=== PATIENT | female | born 1935 | race Two or more races ===

== ENCOUNTER 2021-07-05 09:45 | Inpatient (IN) | payer OTHER ==
[~2021-07-05] VITALS: Ht 157.5 cm; Wt 61.2 kg
[2021-07-05] MEDS ORDERED: HYDREA500 M1 PO (12:01)
[2021-07-05] MEDS ORDERED: LIPITOR40 MG PO (12:01)
[2021-07-05] MEDS ORDERED: PLAVIX75 MG PO (12:01)
[2021-07-05] MEDS ORDERED: CARAFATE1 GM PO (12:01)
[2021-07-05] MEDS ORDERED: TENORMIN100 M1 PO (12:02)
[2021-07-05] MEDS ORDERED: NORVASC5 MG PO (12:02)
[2021-07-05] MEDS ORDERED: IRON325 MG PO (12:02)
[2021-07-05] MEDS ORDERED: FOLIC ACID0.8 M1 PO (12:02)
[2021-07-09] MEDS ORDERED: FAMOTIDINE20 MG (08:29)
[2021-07-09] MEDS ORDERED: INTESTINEX680 M1 (08:29)
[2021-07-13] MEDS ORDERED: PERCOCET 5-3251 EACH PO (09:32)
== END 2021-07-13 09:00 | disposition home or self-care (01) | DRG 330 ==
LOC: SURG 07-09 06:00 → O/R 07-09 06:00 → SURH 07-09 09:45 → SURG 07-09 14:24
PROVIDERS: ADMIT Colon & Rectal Surgery; ATTEND Colon & Rectal Surgery
PROC: 0DBP4ZZ Excision of Rectum, Percutaneous Endoscopic Approach (ICD-10-PCS; 2021-07-09)
PROC: 0DTN4ZZ Resection of Sigmoid Colon, Percutaneous Endoscopic Approach (ICD-10-PCS; principal; 2021-07-09 11:00)
PROC: 30233N1 Transfusion of Nonautologous Red Blood Cells into Peripheral Vein, Percutaneous Approach (ICD-10-PCS; 2021-07-11)
DX: K57.32 Diverticulitis of large intestine without perforation or abscess without bleeding (principal); K92.1 Melena; D64.9 Anemia, unspecified; I10 Essential (primary) hypertension; Z20.822 Contact with and (suspected) exposure to COVID-19